=== PATIENT | male | born 1945 | race Caucasian/White ===

== ENCOUNTER 2021-02-15 15:52 | Emergency (ER) | payer MEDICARE ==
[2021-02-15 17:00] LABS: RED BLOOD COUNT 5.22 M/UL (4.20-5.50); WHITE BLOOD COUNT 6.2 K/UL (4.5-11.0)
[2021-02-15 17:41] LABS: BUN/CREATININE RATIO 9 (0-10)
[2021-02-15] MEDS ORDERED: PROTONIX40 MG PO (21:21)
[2021-02-15] MEDS ORDERED: ASPIRIN CHEWABL81 MG PO (21:21)
== END 2021-02-15 21:38 | disposition home or self-care (01) ==
LOC: ER1 15:52
PROVIDERS: Physician Assistant Medical
DX: R10.13 Epigastric pain (principal); R07.89 Other chest pain; I10 Essential (primary) hypertension
CPT/HCPCS: 71045; 80053; 82550; 82553; 83874; 83880; 84484; 85025; 93005; 99285

== ENCOUNTER 2021-05-26 13:58 | Emergency (ER) | payer MEDICARE ==
[~2021-05-26 13:58] MED LIST: ASPIRIN CHEWABL81 MG PO; PROTONIX40 MG PO
== END 2021-05-26 14:38 | disposition left against medical advice (07) ==
LOC: ER1 13:58
DX: Z53.21 Procedure and treatment not carried out due to patient leaving prior to being seen by health care provider (principal)

== ENCOUNTER 2021-07-23 20:47 | Emergency (ER) | payer MEDICARE | END 2021-07-23 23:05 | disposition short-term general hospital (02) | LOC: ER1 20:47 | DX: S05.01XA Injury of conjunctiva and corneal abrasion without foreign body, right eye, initial encounter (principal); H11.31 Conjunctival hemorrhage, right eye; Z23 Encounter for immunization; I10 Essential (primary) hypertension; X58.XXXA Exposure to other specified factors, initial encounter | CPT/HCPCS: 90471; 90714; 99284 ==